=== PATIENT | male | born 1950 | race Caucasian/White ===

== ENCOUNTER 2021-05-11 18:38 | Emergency (ER) | payer OTHER, SELFPAY ==
[2021-05-11 18:58] VITALS: BP 112/59; PULSE 95; RESP 17; TEMP 36.8; O2SAT 98; BMI 26.5
--- NOTE | 2021-05-11 20:32 | ED_ITS ---
HPI - Dental/Oral General Chief complaint: Dental/Oral Stated complaint: Rt Sided Facial Swelling Time Seen by Provider: 05/11/21 20:23 Source: patient Mode of arrival: Ambulatory History of Present Illness HPI Narrative: 71-year-old disabled [place] with diabetes and PTSD presents with some fullness in the right maxillary area and the right upper jaw. Minimal pain. He does note that he has quite a bit of burning over his tongue with anything other than water and with brushing his teeth. He has not been checking his blood sugars recently. Three years ago he was seen at the [facility] and was recommended that he have all of his teeth removed and dentures made however he declined at that time. He apparently was seen at urgent care 2-3 days ago and was prescribed antibiotics but has not yet gotten to the pharmacy to pick them. He is not complaining of fever, headaches, dizziness, chills, chest pain, palpitations, abdominal pain, vomiting, diarrhea. Related Data Previous Rx's Medication Instructions Recorded clotrimazole 10 mg charises 10 mg MUCOUS MEMBRANE 5XD #60 tab 05/11/21 Allergies Allergy/AdvReac Type Severity Reaction Status Date / Time No Known Drug Allergies Allergy Verified 05/11/21 19:01 Review of Systems Review of Systems Narrative: Remainder of complete review of systems is otherwise unremarkable except for that included in the HPI. Patient History Medical History Diabetes PTSD (post-traumatic stress disorder) Social History Smoking Status: Never smoker Smoking Status: Never smoker alcohol intake frequency: other Substance Use Type: does not use Exam Narrative Exam Narrative: General: Alert appropriate in no acute distress HEENT: Fullness over the right maxilla tooth number for 5 area. Poor dentition multiple broken teeth and missing teeth. Similar fullness around the tooth with no pointing abscess or obvious drainage. Tongue is denuded and somewhat erythematous without new white discharge to buccal mucosa Respiratory: Able to speak in full sentences, no obvious respiratory distress Skin: No obvious rashes, warm and dry Neurologic: Grossly intact no obvious asymmetries or abnormalities Psych: appropriate insight and affect, cooperative Initial Vital Signs Initial Vital Signs: Vital Signs Temperature 98.2 F 05/11/21 18:58 Pulse Rate 95 H 05/11/21 18:58 Respiratory Rate 17 05/11/21 18:58 Blood Pressure 112/59 L 05/11/21 18:58 Pulse Oximetry 98 05/11/21 18:58 Course Orders Ordered: Discontinued Medications Penicillin V Potassium (Penicillin 250 Mg Tab Prepack) 1 bottle MISC SEEINSTR ONE Stop: 05/11/21 20:43 Last Admin: 05/11/21 20:52 Dose: 1 bottle Documented by: HERMANN Vital Signs Vital signs: Vital Signs - 8 hr 05/11/21 18:58 Temperature 98.2 F Pulse Rate 95 H Respiratory Rate 17 Blood Pressure 112/59 L Pulse Oximetry 98 MDM - Dental/Oral MDM Narrative Medical decision making narrative: 71-year-old gentleman with dental abscess likely to 4 or 5 without sepsis and minimal pain. Will give him a prepack of penicillin and encouraged him to cook pickled meat the antibiotics prescribed by urgent care. I am also suspicious that he may have thrush based on the tongue pain tenderness, loss of pilli and erythema. Will give him nystatin troches his as well. Strongly recommended that he schedule appointment with his dentist and consider having the teeth removed for his overall health. Discharge Plan Departure Patient Disposition: Home Clinical Impression: Dental abscess, Oral thrush Instructions: Tooth Abscess, Thrush-Adult Activity Restrictions/Additional Instructions: Thank you for coming in today You have a dental infection. I have given you antibiotics to go home this evening. I think that the tongue pain that your having is related to a yeast infection in your mouth. I have given you a prescription for a yeast medicine in the form of a lozenge to suck on 5 times a day to see if this makes a difference. For definitive treatment, you need to follow-up with a dentist and are going to need to have your teeth removed. You may find that your diabetes is much easier to control once all your teeth removed in the chronic infection in your mouth healed. I wish you the best Prescriptions: New clotrimazole 10 mg charisse 10 mg mucous membrane 5XD Qty: 60 RF: 0 Referrals: Bridget Stafford MD [Primary Care Provider] -
[2021-05-11] MEDS: PENICILLIN 250 MG TAB PREPACK 1 BOTTLE MISC (20:52)
[2021-05-11 21:04] VITALS: BP 113/57; PULSE 88; RESP 16; TEMP 36.8; O2SAT 97
== END 2021-05-11 21:06 | disposition home or self-care (01) ==
PROVIDERS: Emergency Provider Emergency Medicine; PCP Internal Medicine
DX: K04.7 Periapical abscess without sinus (principal); B37.0 Candidal stomatitis
CPT/HCPCS: 99281; 99283